=== PATIENT | female | born 1950 | race Caucasian/White ===

== ENCOUNTER 2018-09-03 07:17 | Outpatient (CLI) | payer OTHER, MEDICARE ==
[~2018-09-03 07:17] MED LIST: B CO1TAB4 PO; CALC-499 PO; CHOL2000 PO; MAGN400C PO; RED600TA PO; [UNRECOGNIZED DRUG - CODE] TP
[2018-09-03 07:53] LABS: COLOR,URINE YELLOW (Yellow); GLUCOSE, URINE NEGATIVE (Neg); KETONES,URINE NEGATIVE (Neg); LEUKOCYTE ESTERASE ,URINE LARGE (Neg); NITRITES, URINE NEGATIVE (Neg); OCCULT BLOOD,URINE SMALL (Neg); PROTEIN,URINE NEGATIVE (Neg); UROBILINOGEN,URINE 0.2 E.U/dL (0.2-1.0)
[2018-09-03 07:54] LABS: CLARITY,URINE CLOUDY (Clear); UA COLLECTION TYPE CLN CATCH MIDSTREAM
[2018-09-03 08:03] LABS: BACTERIA,URINE 1+ /HPF (Neg); SQUAMOUS EPITHELIAL CELL,UR MANY /LPF (FEW)
[2018-09-03 08:04] LABS: AMORPHOUS PHOSPHATES 1+; MUCUS STRANDS FEW /LPF (Neg)
[2018-09-03 08:15] LABS: ALANINE AMINOTRANSFERASE 32 U/L (12-78); ALBUMIN 3.9 G/DL (3.4-5.0); ALBUMIN/GLOBULIN RATIO 1.2 (1.1-1.5); ALKALINE PHOSPHATASE 83 IU/L (46-116); ANION GAP 6 (8-16); ASPARTATE AMINO TRANSFERASE 21 U/L (10-37); BILIRUBIN,TOTAL 0.5 MG/DL (0.1-1.0); BLOOD UREA NITROGEN 15 MG/DL (7-18); BUN/CREATININE RATIO 21.4 (6.6-38.0); CALCIUM 8.8 MG/DL (8.5-10.1); CHLORIDE 107 MMOL/L (99-107); CHOL/HDL RATIO 2.7 (0.00-4.99); CHOLESTEROL 232 MG/DL (0-200); GLUCOSE 91 MG/DL (70-104); HDL CHOLESTEROL 85 MG/DL (35-60); LDL CHOLESTEROL 128 MG/DL (50-100); POTASSIUM 3.6 MMOL/L (3.5-5.1); SODIUM 142 MMOL/L (135-145); TOTAL PROTEIN 7.2 G/DL (6.4-8.2); TRIGLYCERIDES 86 MG/DL (20-135); eGFR 83 ML/MIN
[2018-09-03 08:16] LABS: BASOPHILS # (AUTO) 0.1 X10'3 (0-0.2); BASOPHILS % (AUTO) 1.2 % (0-1); EOSINOPHILS # (AUTO) 0.4 X10'3 (0-0.9); EOSINOPHILS % (AUTO) 5.4 % (0-6); HEMATOCRIT 42.6 % (35.0-45.0); HEMOGLOBIN 14.5 g/dl (12.0-16.0); LYMPHOCYTES # (AUTO) 1.9 X10'3 (1.1-4.8); LYMPHOCYTES % (AUTO) 29.2 % (21-51); MEAN CORPUSCULAR HEMOGLOBIN 31.4 PG (27.0-31.0); MEAN CORPUSCULAR HGB CONC 34.2 g/dL (33.0-36.5); MEAN PLATELET VOLUME 8.9 FL (7.4-10.4); MONOCYTES # (AUTO) 0.4 X10'3 (0-0.9); MONOCYTES % (AUTO) 5.7 % (2-12); NEUTROPHILS # (AUTO) 3.9 X10'3 (1.8-7.7); NEUTROPHILS % (AUTO) 58.5 % (42-75); PLATELET COUNT 168 X10'3 (140-440); RED BLOOD COUNT 4.63 X10'6 (4.20-5.60); RED CELL DISTRIBUTION WIDTH 13.3 % (11.5-14.5); WHITE BLOOD COUNT 6.7 X10'3 (4.5-11.0)
== END 2018-09-03 23:59 | disposition home or self-care (01) ==
LOC: LAB 07:17
PROVIDERS: ATTEND Family Medicine
DX: Z00.00 Encounter for general adult medical examination without abnormal findings (principal)
CPT/HCPCS: 36415; 80053; 80061; 81001; 84439; 84443; 85025

== ENCOUNTER 2019-06-06 07:17 | Emergency (ER) | payer OTHER, MEDICARE ==
[~2019-06-06] VITALS: Ht 167.6 cm; Wt 73.9 kg
[2019-06-06 08:18] LABS: BASOPHILS % (AUTO) 0.4 % (0-1); EOSINOPHILS # (AUTO) 0.3 X10'3 (0-0.9); EOSINOPHILS % (AUTO) 2.2 % (0-6); HEMATOCRIT 42.1 % (35.0-45.0); HEMOGLOBIN 14.3 g/dl (12.0-16.0); LYMPHOCYTES # (AUTO) 1.5 X10'3 (1.1-4.8); LYMPHOCYTES % (AUTO) 13.5 % (21-51); MEAN CORPUSCULAR HEMOGLOBIN 30.5 PG (27.0-31.0); MEAN CORPUSCULAR HGB CONC 33.9 g/dL (33.0-36.5); MEAN CORPUSCULAR VOLUME 89.9 FL (78-98); MONOCYTES # (AUTO) 0.4 X10'3 (0-0.9); MONOCYTES % (AUTO) 3.6 % (2-12); NEUTROPHILS # (AUTO) 9.2 X10'3 (1.8-7.7); NEUTROPHILS % (AUTO) 80.3 % (42-75); PLATELET COUNT 182 X10'3 (140-440); RED BLOOD COUNT 4.68 X10'6 (4.20-5.60); RED CELL DISTRIBUTION WIDTH 12.9 % (11.5-14.5); WHITE BLOOD COUNT 11.5 X10'3 (4.5-11.0)
[2019-06-06 08:25] LABS: CLARITY,URINE SLIGHTLY CLOUDY (Clear); COLOR,URINE YELLOW (Yellow); GLUCOSE, URINE NEGATIVE (Neg); KETONES,URINE NEGATIVE (Neg); LEUKOCYTE ESTERASE ,URINE SMALL (Neg); NITRITES, URINE NEGATIVE (Neg); OCCULT BLOOD,URINE SMALL (Neg); PROTEIN,URINE NEGATIVE (Neg); UROBILINOGEN,URINE 0.2 E.U/dL (0.2-1.0)
[2019-06-06 08:27] LABS: UA COLLECTION TYPE CLN CATCH MIDSTREAM
[2019-06-06 08:32] LABS: BACTERIA,URINE 1+ /HPF (Neg); MUCUS STRANDS NONE SEEN /LPF (Neg); SQUAMOUS EPITHELIAL CELL,UR MODERATE /LPF (FEW); WBC CLUMPS,URINE FEW /HPF (NEGATIVE)
[2019-06-06 08:39] LABS: ALANINE AMINOTRANSFERASE 36 U/L (12-78); ALBUMIN 3.7 G/DL (3.4-5.0); ALBUMIN/GLOBULIN RATIO 1.1 (1.1-1.5); ALKALINE PHOSPHATASE 93 IU/L (46-116); ANION GAP 8 (8-16); ASPARTATE AMINO TRANSFERASE 32 U/L (10-37); BILIRUBIN,TOTAL 0.4 MG/DL (0.1-1.0); BLOOD UREA NITROGEN 13 MG/DL (7-18); BUN/CREATININE RATIO 19.7 (6.6-38.0); CALCIUM 9.4 MG/DL (8.5-10.1); CHLORIDE 108 MMOL/L (99-107); CREATININE 0.66 MG/DL (0.40-0.90); GLUCOSE 111 MG/DL (70-104); POTASSIUM 3.2 MMOL/L (3.5-5.1); SODIUM 145 MMOL/L (135-145); TOTAL CARBON DIOXIDE 29.3 MMOL/L (24-32); TOTAL PROTEIN 7.1 G/DL (6.4-8.2); eGFR 89 ML/MIN
[2019-06-06] MEDS ORDERED: diatrozoate meglu/diatrozoate sod (37% iodine) 120ML oral solution PO ONE (09:45)
[2019-06-06] MEDS ORDERED: diatr meglu/diatrizoate 30ml oral sol.-(3 dose) bottle PO ONE (09:55)
[2019-06-06] MEDS ORDERED: iohexol 300mg/ml 100ml inj. ONE (11:56)
[2019-06-06 13:45] VITALS: BP 132/94
== END 2019-06-06 13:42 | disposition home or self-care (01) ==
LOC: ER 07:18
DX: R10.9 Unspecified abdominal pain (principal); R14.0 Abdominal distension (gaseous); R11.10 Vomiting, unspecified; Z98.51 Tubal ligation status; Z98.890 Other specified postprocedural states; Z79.899 Other long term (current) drug therapy
CPT/HCPCS: 36415; 74176; 74177; 76700; 76857; 80053; 81001; 85025; 87088; 93005; 99285; Q9963; Q9967; 82378

== ENCOUNTER 2019-06-11 14:05 | Outpatient (CLI) | payer OTHER, MEDICARE | END 2019-06-11 23:59 | disposition home or self-care (01) | LOC: RAD 14:05 | PROVIDERS: ATTEND Family Medicine | DX: N83.8 Other noninflammatory disorders of ovary, fallopian tube and broad ligament (principal) | CPT/HCPCS: 76830; 76856 ==

== ENCOUNTER 2019-06-13 06:15 | Day surgery (SDC) | payer OTHER, MEDICARE ==
[2019-06-13] VITALS (9 sets, daily range): BP systolic 106–171; BP diastolic 44–95
[~2019-06-13] VITALS: Ht 167.6 cm; Wt 72.7 kg
[2019-06-13] MEDS ORDERED: MIDAZolam 5mg/5ml vial ONE (06:38)
[2019-06-13] MEDS ORDERED: fentaNYL/PF 50MCG/1 ML 2ML syringe ONE (06:38)
[2019-06-13] MEDS ORDERED: ondansetron/PF 4mg/2ml inj ONE (09:23)
[2019-06-13] MEDS ORDERED: gadobutrol 10mmol/10ml inj. IV ONE (16:05)
== END 2019-06-13 13:30 | disposition home or self-care (01) ==
LOC: GI LAB 06:15
PROVIDERS: ATTEND Internal Medicine Gastroenterology
DX: R10.9 Unspecified abdominal pain (principal); K57.30 Diverticulosis of large intestine without perforation or abscess without bleeding; K56.699 Other intestinal obstruction unspecified as to partial versus complete obstruction; K56.2 Volvulus; Z79.899 Other long term (current) drug therapy
CPT/HCPCS: 45378; 72197; 99152; 99153; A9585; J2250; J2405; J3010; J7040; 45337; A4620

== ENCOUNTER 2019-06-14 12:52 | Inpatient (IN) | payer OTHER, MEDICARE ==
[~2019-06-14] VITALS: Ht 167.6 cm; Wt 72.7 kg
[2019-06-14 13:00] VITALS: BP 186/95
[2019-06-14] MEDS ORDERED: LIDOcaine Viscous 15ml cup ONE (14:55)
[2019-06-14] MEDS ORDERED: MIDAZolam 5mg/5ml vial ONE (15:18)
[2019-06-14] MEDS ORDERED: fentaNYL/PF 50MCG/1 ML 2ML syringe ONE (15:18)
[2019-06-14 15:35] VITALS: BP 159/84
[2019-06-14 15:45] VITALS: BP 158/78
[2019-06-14 15:55] VITALS: BP 149/74
[2019-06-14] MEDS ORDERED: morphine 2 MG/ML inj. syringe IV PRN ×2 (16:40)
[2019-06-14] MEDS ORDERED: acetaminophen 325mg tablet PO PRN (16:40)
[2019-06-14] MEDS ORDERED: mag hydrox/Alum hydrox/simeth 30ml oral suspension PO PRN (16:40)
[2019-06-14] MEDS ORDERED: magnesium hydroxide 30ml (MOM) UD suspension PO PRN (16:40)
--- NOTE | 2019-06-14 17:45 | NUR ---
Patient in room [facility]. I have received report from [facility]ni [facility] and had the opportunity to ask questions and assume patient care.
--- NOTE | 2019-06-14 18:15 | NUR ---
Pt arrived to the floor via wheelchair. pt will be tucked in and make her comfortable until change of shift.
--- NOTE | 2019-06-14 18:20 | NUR ---
Patient in room [facility]. I have received report from Catherine DIAZ and had the opportunity to ask questions and assume patient care.
--- NOTE | 2019-06-14 18:24 | NUR ---
Problems reprioritized. Patient report given, questions answered & plan of care reviewed with Nicole Hale.
[2019-06-14] MEDS ORDERED: potassium Cl 20 mEq SR tablet PO PRN ×2 (18:30)
[2019-06-14] MEDS: normal saline 1000ml 1,000 ML IV SCH ×2 (18:30→23:31)
[2019-06-14] MEDS: K and/or MAG REPLACEMENT MC SCH ×2 (18:30→20:00)
[2019-06-14 19:00] VITALS: BP 169/74
[2019-06-14] MEDS: ondansetron/PF 4mg/2ml inj IV PRN (19:20)
[2019-06-14] MEDS: heparin, porcine 5000 units/ml vial SQ SCH (19:37)
[2019-06-14] MEDS: diatr meglu/diatrizoate 30ml oral sol.-(3 dose) bottle PO SCH (21:32)
[2019-06-14] MEDS: proCHLORperazine 10 MG/2 ml inj IV PRN (23:31)
[2019-06-15] VITALS: BP 152/81
[2019-06-15] MEDS: ondansetron/PF 4mg/2ml inj IV PRN ×2 (03:41→13:19)
[2019-06-15 05:20] LABS: BASOPHILS # (AUTO) 0.1 X10'3 (0-0.2); BASOPHILS % (AUTO) 0.6 % (0-1); EOSINOPHILS % (AUTO) 0.5 % (0-6); HEMATOCRIT 39.4 % (35.0-45.0); HEMOGLOBIN 13.4 g/dl (12.0-16.0); LYMPHOCYTES # (AUTO) 1.3 X10'3 (1.1-4.8); LYMPHOCYTES % (AUTO) 14.3 % (21-51); MEAN CORPUSCULAR HEMOGLOBIN 30.1 PG (27.0-31.0); MEAN CORPUSCULAR VOLUME 88.6 FL (78-98); MEAN PLATELET VOLUME 9.2 FL (7.4-10.4); MONOCYTES # (AUTO) 0.8 X10'3 (0-0.9); MONOCYTES % (AUTO) 8.5 % (2-12); NEUTROPHILS # (AUTO) 6.9 X10'3 (1.8-7.7); NEUTROPHILS % (AUTO) 76.1 % (42-75); PLATELET COUNT 176 X10'3 (140-440); RED BLOOD COUNT 4.45 X10'6 (4.20-5.60); RED CELL DISTRIBUTION WIDTH 13.1 % (11.5-14.5); WHITE BLOOD COUNT 9.1 X10'3 (4.5-11.0)
[2019-06-15 05:45] LABS: ALBUMIN 3.1 G/DL (3.4-5.0); ANION GAP 8 (8-16); BLOOD UREA NITROGEN 9 MG/DL (7-18); BUN/CREATININE RATIO 16.1 (6.6-38.0); CALCIUM 8.3 MG/DL (8.5-10.1); CHLORIDE 107 MMOL/L (99-107); CREATININE 0.56 MG/DL (0.40-0.90); GLUCOSE 95 MG/DL (70-104); MAGNESIUM 1.9 MG/DL (1.5-2.4); SODIUM 143 MMOL/L (135-145); eGFR > 90 ML/MIN
[2019-06-15 05:55] LABS: POTASSIUM 2.6 MMOL/L (3.5-5.1)
--- NOTE | 2019-06-15 05:55 | NUR ---
Called MD for critical K of 2.6. Patient has replacement orders.
[2019-06-15] MEDS: K and/or MAG REPLACEMENT MC SCH ×2 (06:02→20:00)
[2019-06-15] MEDS: potassium CL 10mEq/100ml bag 100 ML IV PRN (06:02)
--- NOTE | 2019-06-15 06:45 | NUR ---
Problems reprioritized. Patient report given, questions answered & plan of care reviewed with Kathy DIAZ.
[2019-06-15 07:00] VITALS: BP 154/80
[2019-06-15] MEDS: diatr meglu/diatrizoate 30ml oral sol.-(3 dose) bottle PO SCH (07:00)
[2019-06-15] MEDS ORDERED: iohexol 300mg/ml 100ml inj. ONE (07:24)
[2019-06-15] MEDS: heparin, porcine 5000 units/ml vial SQ SCH ×2 (08:00→20:00)
[2019-06-15] MEDS: Potassium Cl 40 MEQ in NS 500 ML IV SCH ×2 (08:40→15:04)
[2019-06-15] MEDS: proCHLORperazine 10 MG/2 ml inj IV PRN ×2 (08:45→19:37)
--- NOTE | 2019-06-15 10:28 | NUR ---
DC'd patients NG per MD orders. Patient tolerated well.
[2019-06-15 11:00] VITALS: BP 139/82
--- NOTE | 2019-06-15 12:20 | NUR ---
Paged Dr Alonzo due to patient would like to try something else for pain Morphine makes her nauseated.
[2019-06-15] MEDS: normal saline 1000ml 1,000 ML IV SCH ×2 (12:36→23:32)
[2019-06-15] MEDS ORDERED: HYDROmorphone inj. 0.5 MG/0.5 ML DISP.SYRIN IV PRN (13:40)
[2019-06-15] MEDS ORDERED: ringers solution, lacted 1,000 ML IV ONE (16:49)
--- NOTE | 2019-06-15 18:30 | NUR ---
Patient in room [facility]. I have received report from Kathy Hale and had the opportunity to ask questions and assume patient care.
--- NOTE | 2019-06-15 18:46 | NUR ---
Problems reprioritized. Patient report given, questions answered & plan of care reviewed with Nicole DIAZ.
[2019-06-15 19:00] VITALS: BP 145/79
[2019-06-16] VITALS (20 sets, daily range): BP systolic 116–178; BP diastolic 58–90
[2019-06-16 03:44] LABS: ALANINE AMINOTRANSFERASE 20 U/L (12-78); ALBUMIN 2.9 G/DL (3.4-5.0); ALKALINE PHOSPHATASE 63 IU/L (46-116); ANION GAP 10 (8-16); ASPARTATE AMINO TRANSFERASE 22 U/L (10-37); BILIRUBIN,TOTAL 0.6 MG/DL (0.1-1.0); CALCIUM 8.4 MG/DL (8.5-10.1); CHLORIDE 109 MMOL/L (99-107); CREATININE 0.54 MG/DL (0.40-0.90); GLUCOSE 73 MG/DL (70-104); MAGNESIUM 1.9 MG/DL (1.5-2.4); POTASSIUM 3.3 MMOL/L (3.5-5.1); SODIUM 144 MMOL/L (135-145); TOTAL CARBON DIOXIDE 25.4 MMOL/L (24-32); TOTAL PROTEIN 5.8 G/DL (6.4-8.2); eGFR > 90 ML/MIN
[2019-06-16 04:09] LABS: BLOOD UREA NITROGEN 9 MG/DL (7-18); BUN/CREATININE RATIO 16.7 (6.6-38.0)
[2019-06-16] MEDS: potassium CL 10mEq/100ml bag 100 ML IV PRN (04:18)
[2019-06-16] MEDS ORDERED: BUPIVAcaine/PF 2.5 mg/ml (0.25%) 30ml vial ONE (05:09)
[2019-06-16] MEDS ORDERED: ceFAZolin 1000mg inj ONE (05:09)
[2019-06-16 05:22] LABS: BASOPHILS # (AUTO) 0.1 X10'3 (0-0.2); BASOPHILS % (AUTO) 1.1 % (0-1); EOSINOPHILS # (AUTO) 0.2 X10'3 (0-0.9); EOSINOPHILS % (AUTO) 1.9 % (0-6); HEMATOCRIT 39.3 % (35.0-45.0); HEMOGLOBIN 13.4 g/dl (12.0-16.0); LYMPHOCYTES # (AUTO) 1.8 X10'3 (1.1-4.8); LYMPHOCYTES % (AUTO) 21.7 % (21-51); MEAN CORPUSCULAR HEMOGLOBIN 30.1 PG (27.0-31.0); MEAN CORPUSCULAR HGB CONC 34.1 g/dL (33.0-36.5); MEAN CORPUSCULAR VOLUME 88.4 FL (78-98); MEAN PLATELET VOLUME 8.9 FL (7.4-10.4); MONOCYTES # (AUTO) 0.7 X10'3 (0-0.9); MONOCYTES % (AUTO) 8.8 % (2-12); NEUTROPHILS # (AUTO) 5.5 X10'3 (1.8-7.7); NEUTROPHILS % (AUTO) 66.5 % (42-75); PLATELET COUNT 173 X10'3 (140-440); RED BLOOD COUNT 4.45 X10'6 (4.20-5.60); RED CELL DISTRIBUTION WIDTH 13.1 % (11.5-14.5); WHITE BLOOD COUNT 8.3 X10'3 (4.5-11.0)
[2019-06-16] MEDS ORDERED: ceFOXitin 2 GM ADDVANTGE BAG 50 ML IV ONE (05:24)
[2019-06-16] MEDS ORDERED: sevoflurane 250ml liquid IH ONE (06:10)
[2019-06-16] MEDS ORDERED: dexamethasone sod phosphate 10mg/ml inj ONE (06:10)
[2019-06-16] MEDS ORDERED: neostigmine methylsulfate 1 MG/ML 10ml vial ONE (06:10)
[2019-06-16] MEDS ORDERED: midazolam 2 mg/2 ml injection ONE (06:16)
[2019-06-16] MEDS ORDERED: fentaNYL /PF 50mcg/ml 5ml ampule ONE (06:16)
[2019-06-16] MEDS ORDERED: propofol inj 20 ML IV ONE (06:24)
[2019-06-16] MEDS ORDERED: LIDOcaine 2% (20mg/ml) 5ml vial ONE (06:24)
[2019-06-16] MEDS ORDERED: rocuronium 10mg/ml inj IV ONE ×3 (06:24→07:54)
[2019-06-16] MEDS ORDERED: ondansetron/PF 4mg/2ml inj ONE (06:25)
--- NOTE | 2019-06-16 06:40 | NUR ---
Problems reprioritized. Patient report given, questions answered & plan of care reviewed with Antonieta DIAZ. Patient is currently in preop unit awaiting surgery.
--- NOTE | 2019-06-16 06:40 | NUR ---
Patient in room [facility]. I have received report from Nicole DIAZ and had the opportunity to ask questions and assume patient care.
[2019-06-16] MEDS ORDERED: glycopyrrolate 0.2mg/ml inj ONE (07:27)
[2019-06-16] MEDS ORDERED: BUPIVACAINE liposomal/PF 13.3 MG/ML vial IM ONE (07:37)
[2019-06-16] MEDS ORDERED: BUPIVAcaine/PF 2.5mg/ml (0.25%) 10ml vial ONE (07:37)
[2019-06-16] MEDS: heparin, porcine 5000 units/ml vial SQ SCH ×2 (08:00→20:00)
[2019-06-16] MEDS: K and/or MAG REPLACEMENT MC SCH ×2 (08:00→20:00)
[2019-06-16] MEDS ORDERED: fentaNYL/PF 50MCG/1 ML 2ML syringe ONE ×2 (08:14→09:28)
[2019-06-16] MEDS: normal saline 1000ml 1,000 ML IV SCH ×2 (08:36→16:29)
--- NOTE | 2019-06-16 09:15 | NUR ---
Received from OR via BED , accompanied by Anesthesiologist DR HIGGINS and report given by Anesthesiolgist. PATIENT WAKING UP, DENIES PAIN, V/S WNL, NEUROVASCULAR CHECKS INTACT, 20G PIV LUE, SCD ON, COLOSTOMY WITH GOOD SEAL AND SMALL AMOUNT OF FECAL MATTER IN BAG WITH PINKISH RED STOMA. BANDAIDS TO LAP SITES CDI AND 1 ISLAND DRESSING CDI, F/C DRAINING CLEAR YUELLOW URINE
[2019-06-16] MEDS ORDERED: ringers solution, lacted 1,000 ML IV SCH (09:29)
[2019-06-16] MEDS ORDERED: HYDROmorphone inj. 0.5 MG/0.5 ML DISP.SYRIN IV PRN (09:30)
[2019-06-16] MEDS ORDERED: labetalol 20mg/4ml (5mg/ml) syringe IV PRN (09:30)
[2019-06-16] MEDS ORDERED: ondansetron/PF 4mg/2ml inj IV PRN ×2 (09:30→09:40)
[2019-06-16] MEDS ORDERED: hydrALAZINE 20mg/ml inj. IV PRN (09:30)
[2019-06-16] MEDS ORDERED: fentaNYL/PF 50MCG/1 ML 2ML syringe IV PRN ×2 (09:30)
[2019-06-16] MEDS ORDERED: naloxone 0.4 mg/ml inj IV PRN (09:40)
[2019-06-16] MEDS ORDERED: CADD PCA waste documentation MC PRN (09:40)
--- NOTE | 2019-06-16 09:46 | NUR ---
Received patient report from recovery room nurse Luis DIAZ. Awaiting arrival back to room 351.
[2019-06-16] MEDS: ondansetron/PF 4mg/2ml inj IV PRN ×2 (10:05→15:44)
[2019-06-16] MEDS: HYDROmorphone inj. 0.5 MG/0.5 ML DISP.SYRIN IV PRN ×2 (10:19→10:31)
[2019-06-16] MEDS: HYDROmorphone/NS 1 mg/ml CADD 50 ML IV SCH ×8 (10:42→23:00)
--- NOTE | 2019-06-16 10:45 | NUR ---
PATIENT ORIENTED X4 BUT SLEEPY, DENIES PAIN, V/S WNL, NEUROVASCULAR CHECKS INTACT, 20G PIV LUE, SCD ON, COLOSTOMY WITH GOOD SEAL AND SMALL AMOUNT OF FECAL MATTER IN BAG WAS EMPTIED AND RESEALED WITH 100CC DOCUMENTED OUTPUT WITH PINKISH RED STOMA. BANDAIDS TO LAP SITES CDI AND 1 ISLAND DRESSING CDI, F/C DRAINING CLEAR YUELLOW URINE. PATIENT TAKEN TO 351 WITH ALL BELONGINGS AND HOOKED UP TO MONITORS IN ROOM AND REPORT GIVEN TO RN WHO HAS TAKEN OVER PATIENT CARE. .
--- NOTE | 2019-06-16 11:15 | NUR ---
Patient back in room 351. VSS. Abdomen soft, lap sites CDI, ostomy intact.
[2019-06-16 13:11] LABS: CANCER ANTIGEN 125 79.5 U/mL (0.0-38.1); CARCINOEMBRYONIC ANTIGEN 0.9 ng/mL (0.0-4.7)
--- NOTE | 2019-06-16 13:57 | NUR ---
Dr. Elmore paged regarding med rec needing to be addressed.
[2019-06-16 14:07] LABS: HEMATOCRIT 41.3 % (35.0-45.0); HEMOGLOBIN 13.8 g/dl (12.0-16.0); MEAN CORPUSCULAR HEMOGLOBIN 29.8 PG (27.0-31.0); MEAN CORPUSCULAR HGB CONC 33.5 g/dL (33.0-36.5); MEAN CORPUSCULAR VOLUME 88.9 FL (78-98); MEAN PLATELET VOLUME 9.2 FL (7.4-10.4); PLATELET COUNT 193 X10'3 (140-440); RED BLOOD COUNT 4.65 X10'6 (4.20-5.60); RED CELL DISTRIBUTION WIDTH 13.1 % (11.5-14.5); WHITE BLOOD COUNT 18.4 X10'3 (4.5-11.0)
--- NOTE | 2019-06-16 18:59 | NUR ---
Problems reprioritized. Patient report given, questions answered & plan of care reviewed with Wendy DIAZ.
[2019-06-17] VITALS: BP 141/70
[2019-06-17] MEDS: HYDROmorphone/NS 1 mg/ml CADD 50 ML IV SCH ×12 (01:00→23:00)
[2019-06-17] MEDS: normal saline 1000ml 1,000 ML IV SCH ×2 (02:03→13:28)
[2019-06-17 04:00] VITALS: BP 129/63
--- NOTE | 2019-06-17 04:30 | NUR ---
Patient did well last night. Patient tolerated her clears diet well with no nausea or abd distention. Patient did pass gas in her ostomy bag and had 100ml of liquid brown stool in her ostomy. Patient has hypoactive BS. FC in place draining clear yellow urine in FC. Pain control with Dilaudid cadd pump. Patient encourage to use her IS. Will continue with care.
[2019-06-17 06:13] LABS: BASOPHILS % (AUTO) 0.2 % (0-1); EOSINOPHILS % (AUTO) 0.1 % (0-6); HEMATOCRIT 35.7 % (35.0-45.0); HEMOGLOBIN 12.3 g/dl (12.0-16.0); LYMPHOCYTES # (AUTO) 1.6 X10'3 (1.1-4.8); LYMPHOCYTES % (AUTO) 12.3 % (21-51); MEAN CORPUSCULAR HEMOGLOBIN 30.4 PG (27.0-31.0); MEAN CORPUSCULAR HGB CONC 34.4 g/dL (33.0-36.5); MEAN CORPUSCULAR VOLUME 88.5 FL (78-98); MEAN PLATELET VOLUME 9.5 FL (7.4-10.4); MONOCYTES # (AUTO) 1.3 X10'3 (0-0.9); NEUTROPHILS # (AUTO) 9.9 X10'3 (1.8-7.7); NEUTROPHILS % (AUTO) 77.4 % (42-75); PLATELET COUNT 176 X10'3 (140-440); RED BLOOD COUNT 4.04 X10'6 (4.20-5.60); RED CELL DISTRIBUTION WIDTH 13.1 % (11.5-14.5); WHITE BLOOD COUNT 12.7 X10'3 (4.5-11.0)
[2019-06-17 06:24] LABS: ALBUMIN 2.4 G/DL (3.4-5.0); ANION GAP 7 (8-16); BLOOD UREA NITROGEN 6 MG/DL (7-18); BUN/CREATININE RATIO 10.2 (6.6-38.0); CALCIUM 8.2 MG/DL (8.5-10.1); CHLORIDE 107 MMOL/L (99-107); CREATININE 0.59 MG/DL (0.40-0.90); GLUCOSE 129 MG/DL (70-104); MAGNESIUM 1.7 MG/DL (1.5-2.4); POTASSIUM 3.5 MMOL/L (3.5-5.1); SODIUM 140 MMOL/L (135-145); TOTAL CARBON DIOXIDE 26.1 MMOL/L (24-32); eGFR > 90 ML/MIN
--- NOTE | 2019-06-17 06:42 | NUR ---
Problems reprioritized. Patient report given, questions answered & plan of care reviewed with Cari DIAZ.
[2019-06-17 07:30] VITALS: BP 148/74
[2019-06-17] MEDS: heparin, porcine 5000 units/ml vial SQ SCH ×2 (07:38→20:00)
[2019-06-17] MEDS: K and/or MAG REPLACEMENT MC SCH ×2 (07:38→20:00)
[2019-06-17 08:00] VITALS: BP 148/74
--- NOTE | 2019-06-17 08:16 | NUR ---
PAGER ID: [phone] MESSAGE: [phone] - Charlette Munroe : refusing library monitor. can I DC order? shes been sinus rhythm, no cardiac history. thanks! maxi [phone] tele chamber aware.
[2019-06-17 11:08] VITALS: BP 133/72
--- NOTE | 2019-06-17 18:16 | NUR ---
Problems reprioritized. Patient report given, questions answered & plan of care reviewed with EMILY Nguyen.
[2019-06-17 20:00] VITALS: BP 134/71
--- NOTE | 2019-06-17 21:00 | NUR ---
Patient tolerating PO fluids. SL per order.
[2019-06-18] VITALS: BP 121/64
[2019-06-18] MEDS: HYDROmorphone/NS 1 mg/ml CADD 50 ML IV SCH ×4 (01:00→07:00)
--- NOTE | 2019-06-18 04:00 | NUR ---
Green catheter removed this morning @0400. Patient educated to inform nursing staff when she urinates. States understanding.
[2019-06-18 06:22] LABS: BASOPHILS # (AUTO) 0.1 X10'3 (0-0.2); BASOPHILS % (AUTO) 0.7 % (0-1); EOSINOPHILS # (AUTO) 0.2 X10'3 (0-0.9); EOSINOPHILS % (AUTO) 2.3 % (0-6); HEMATOCRIT 32.9 % (35.0-45.0); HEMOGLOBIN 11.4 g/dl (12.0-16.0); LYMPHOCYTES # (AUTO) 1.5 X10'3 (1.1-4.8); LYMPHOCYTES % (AUTO) 14.9 % (21-51); MEAN CORPUSCULAR HEMOGLOBIN 30.5 PG (27.0-31.0); MEAN CORPUSCULAR HGB CONC 34.7 g/dL (33.0-36.5); MEAN CORPUSCULAR VOLUME 87.8 FL (78-98); MEAN PLATELET VOLUME 9.3 FL (7.4-10.4); MONOCYTES # (AUTO) 0.9 X10'3 (0-0.9); MONOCYTES % (AUTO) 8.2 % (2-12); NEUTROPHILS # (AUTO) 7.7 X10'3 (1.8-7.7); NEUTROPHILS % (AUTO) 73.9 % (42-75); PLATELET COUNT 152 X10'3 (140-440); RED BLOOD COUNT 3.74 X10'6 (4.20-5.60); RED CELL DISTRIBUTION WIDTH 12.8 % (11.5-14.5); WHITE BLOOD COUNT 10.4 X10'3 (4.5-11.0)
[2019-06-18 06:24] LABS: ANION GAP 6 (8-16); BLOOD UREA NITROGEN 4 MG/DL (7-18); CALCIUM 8.4 MG/DL (8.5-10.1); CHLORIDE 106 MMOL/L (99-107); CREATININE 0.57 MG/DL (0.40-0.90); GLUCOSE 108 MG/DL (70-104); MAGNESIUM 1.8 MG/DL (1.5-2.4); SODIUM 141 MMOL/L (135-145); eGFR > 90 ML/MIN
[2019-06-18 06:25] LABS: ALBUMIN 2.3 G/DL (3.4-5.0)
--- NOTE | 2019-06-18 06:30 | NUR ---
Problems reprioritized. Patient report given, questions answered & plan of care reviewed with Kathy DIAZ.
[2019-06-18] MEDS ORDERED: potassium CL 10mEq/100ml bag 100 ML IV PRN ×2 (06:55)
[2019-06-18] MEDS ORDERED: potassium Cl 20 mEq SR tablet PO PRN (06:55)
[2019-06-18 07:00] VITALS: BP 139/66
[2019-06-18] MEDS: K and/or MAG REPLACEMENT MC SCH ×4 (08:00→20:00)
[2019-06-18] MEDS: heparin, porcine 5000 units/ml vial SQ SCH ×2 (08:00→20:00)
[2019-06-18] MEDS: HYDROcodone/acetaminophen 10/325mg tab PO PRN ×3 (08:26→20:05)
[2019-06-18 11:00] VITALS: BP 120/73
[2019-06-18] MEDS: potassium Cl 20 mEq SR tablet PO PRN ×3 (11:03→19:59)
--- NOTE | 2019-06-18 15:13 | NUR ---
Sharon with case management working on getting patient her colostomy supplies for possible discharge tomorrow.
--- NOTE | 2019-06-18 16:53 | NUR ---
Initial: Pt admit with SBO and stricture of sigmoid colon. Pt now s/p colon resection with colostomy placement. Patient's diet has been advanced today to full liquid from clear liquid. Pt seen at bedside by engineering intern and provided with written and verbal colostomy nutrition therapy education with list of fiber content in food and RD contact information. Pt currently endorsing a good appetite and denies food allergies or difficulty chewing/swallowing. LBM 06/17 documented with 350 mL stool output per I&O. No nutrition intervention warranted at this time. Will continue to follow. Recommendations: 1) Advance to low fiber diet as medically indicated given pt s/p colostomy placement 2) Monitor need for ONS with diet advancement 3) Bowel care PRN 4) Wt per rx Addendum: 06/18/19 at [address] Amended: Links added.
--- NOTE | 2019-06-18 18:47 | NUR ---
Problems reprioritized. Patient report given, questions answered & plan of care reviewed with Ligia Wills RN.
[2019-06-18 19:00] VITALS: BP 128/70
[2019-06-19] VITALS: BP 123/76
[2019-06-19 05:10] LABS: BASOPHILS # (AUTO) 0.1 X10'3 (0-0.2); BASOPHILS % (AUTO) 0.8 % (0-1); EOSINOPHILS # (AUTO) 0.7 X10'3 (0-0.9); EOSINOPHILS % (AUTO) 5.7 % (0-6); HEMATOCRIT 36.1 % (35.0-45.0); HEMOGLOBIN 12.2 g/dl (12.0-16.0); LYMPHOCYTES # (AUTO) 2.3 X10'3 (1.1-4.8); LYMPHOCYTES % (AUTO) 19.8 % (21-51); MEAN CORPUSCULAR HEMOGLOBIN 29.9 PG (27.0-31.0); MEAN CORPUSCULAR HGB CONC 33.7 g/dL (33.0-36.5); MEAN CORPUSCULAR VOLUME 88.7 FL (78-98); MEAN PLATELET VOLUME 9.1 FL (7.4-10.4); MONOCYTES # (AUTO) 0.9 X10'3 (0-0.9); MONOCYTES % (AUTO) 7.4 % (2-12); NEUTROPHILS # (AUTO) 7.8 X10'3 (1.8-7.7); NEUTROPHILS % (AUTO) 66.3 % (42-75); PLATELET COUNT 184 X10'3 (140-440); RED BLOOD COUNT 4.07 X10'6 (4.20-5.60); RED CELL DISTRIBUTION WIDTH 12.9 % (11.5-14.5); WHITE BLOOD COUNT 11.7 X10'3 (4.5-11.0)
[2019-06-19 05:21] LABS: ALBUMIN 2.6 G/DL (3.4-5.0); ANION GAP 7 (8-16); BLOOD UREA NITROGEN 4 MG/DL (7-18); BUN/CREATININE RATIO 6.7 (6.6-38.0); CALCIUM 9.4 MG/DL (8.5-10.1); CHLORIDE 107 MMOL/L (99-107); GLUCOSE 103 MG/DL (70-104); POTASSIUM 3.9 MMOL/L (3.5-5.1); SODIUM 141 MMOL/L (135-145); TOTAL CARBON DIOXIDE 26.9 MMOL/L (24-32); eGFR > 90 ML/MIN
--- NOTE | 2019-06-19 06:45 | NUR ---
Problems reprioritized. Patient report given, questions answered & plan of care reviewed with EMILY Hernandez.
--- NOTE | 2019-06-19 06:46 | NUR ---
Patient in room [facility]. I have received report from Linda Ugarte RN and had the opportunity to ask questions and assume patient care.
[2019-06-19] MEDS: HYDROcodone/acetaminophen 10/325mg tab PO PRN ×2 (07:33→14:01)
[2019-06-19 08:00] VITALS: BP 129/70
[2019-06-19] MEDS: heparin, porcine 5000 units/ml vial SQ SCH (08:00)
[2019-06-19] MEDS: K and/or MAG REPLACEMENT MC SCH ×2 (08:00)
[2019-06-19] MEDS ORDERED: OXYC-145 PO (12:23)
[2019-06-19] MEDS ORDERED: DOCU-148 PO (13:32)
[2019-06-19] MEDS ORDERED: HYDR-4383 PO (13:32)
--- NOTE | 2019-06-19 14:28 | NUR ---
All cares given to patient. supplies given for colostomy.DC instructions given to patient. Dc home via private car to home with family in stable condition.
== END 2019-06-19 14:05 | disposition home or self-care (01) | DRG 330 ==
LOC: GI LAB 12:52 → EEVIPCON 13:00 → UNDOADMIN 16:30 → SUR 3N 16:30 → EEVIPCON 16:36 → SUR 3N 16:36
PROVIDERS: ADMIT Family Medicine; ATTEND Surgery
PROC: 0DBU4ZX Excision of Omentum, Percutaneous Endoscopic Approach, Diagnostic (ICD-10-PCS; 2019-06-16)
PROC: 0DBN4ZZ Excision of Sigmoid Colon, Percutaneous Endoscopic Approach (ICD-10-PCS; principal; 2019-06-16 06:10)
DX: C18.7 Malignant neoplasm of sigmoid colon (principal); K56.699 Other intestinal obstruction unspecified as to partial versus complete obstruction; R18.8 Other ascites; E87.6 Hypokalemia; R91.1 Solitary pulmonary nodule
CPT/HCPCS: Z7506; Z7508; 36415; 71045; 74019; 74177; 80048; 80053; 82378; 83735; 84132; 85025; 85027; 85610; 86304; 86885; 86900; 86901; 87081; 88307; 88309; 88331; 88341; 88342; 93005; A4215; A4421; A4618; A7000; C1758; C9290; G0378; J0690; J0694; J0780; J1100; J1170; J1644; J2001; J2250; J2270; J2405; J2704; J2710; J3010; J3480; J3490; J7030; J7040; J7120; Q9963; Q9967

== ENCOUNTER 2019-07-10 08:09 | Emergency (ER) | payer OTHER, MEDICARE ==
[~2019-07-10] VITALS: Ht 167.6 cm; Wt 67.3 kg
[~2019-07-10 08:09] MED LIST changes: +DOCU-148 PO; +HYDR-4383 PO; +OXYC-145 PO
[2019-07-10 08:54] LABS: BASOPHILS # (AUTO) 0.1 X10'3 (0-0.2); BASOPHILS % (AUTO) 0.6 % (0-1); EOSINOPHILS # (AUTO) 0.1 X10'3 (0-0.9); EOSINOPHILS % (AUTO) 0.4 % (0-6); HEMATOCRIT 38.1 % (35.0-45.0); HEMOGLOBIN 12.9 g/dl (12.0-16.0); LYMPHOCYTES # (AUTO) 1.3 X10'3 (1.1-4.8); LYMPHOCYTES % (AUTO) 9.5 % (21-51); MEAN CORPUSCULAR HEMOGLOBIN 29.2 PG (27.0-31.0); MEAN CORPUSCULAR HGB CONC 33.9 g/dL (33.0-36.5); MEAN PLATELET VOLUME 8.5 FL (7.4-10.4); MONOCYTES # (AUTO) 0.8 X10'3 (0-0.9); MONOCYTES % (AUTO) 5.7 % (2-12); NEUTROPHILS # (AUTO) 11.2 X10'3 (1.8-7.7); NEUTROPHILS % (AUTO) 83.8 % (42-75); PLATELET COUNT 277 X10'3 (140-440); RED BLOOD COUNT 4.43 X10'6 (4.20-5.60); RED CELL DISTRIBUTION WIDTH 13.4 % (11.5-14.5); WHITE BLOOD COUNT 13.4 X10'3 (4.5-11.0)
[2019-07-10 09:15] LABS: ALANINE AMINOTRANSFERASE 19 U/L (12-78); ALBUMIN 3.2 G/DL (3.4-5.0); ALBUMIN/GLOBULIN RATIO 0.8 (1.1-1.5); ALKALINE PHOSPHATASE 93 IU/L (46-116); ANION GAP 7 (8-16); ASPARTATE AMINO TRANSFERASE 16 U/L (10-37); BILIRUBIN,TOTAL 0.5 MG/DL (0.1-1.0); BLOOD UREA NITROGEN 14 MG/DL (7-18); BUN/CREATININE RATIO 16.9 (6.6-38.0); CHLORIDE 103 MMOL/L (99-107); CREATININE 0.83 MG/DL (0.40-0.90); GLUCOSE 131 MG/DL (70-104); LIPASE 146 U/L (73-393); POTASSIUM 3.8 MMOL/L (3.5-5.1); SODIUM 139 MMOL/L (135-145); TOTAL CARBON DIOXIDE 28.8 MMOL/L (24-32); TOTAL PROTEIN 7.2 G/DL (6.4-8.2); eGFR 68 ML/MIN
[2019-07-10] MEDS ORDERED: proCHLORperazine 10 MG/2 ml inj IV ONE (09:30)
[2019-07-10] MEDS ORDERED: HYDROmorphone inj. 0.5 MG/0.5 ML DISP.SYRIN IV ONE (09:30)
[2019-07-10] MEDS ORDERED: normal saline 1000ML IV soln IVB ONE (09:30)
[2019-07-10 09:44] LABS: CLARITY,URINE SLIGHTLY CLOUDY (Clear); COLOR,URINE YELLOW (Yellow); GLUCOSE, URINE NEGATIVE (Neg); KETONES,URINE NEGATIVE (Neg); LEUKOCYTE ESTERASE ,URINE NEGATIVE (Neg); NITRITES, URINE NEGATIVE (Neg); OCCULT BLOOD,URINE MODERATE (Neg); PH,URINE 6.5 (4.8-8.0); PROTEIN,URINE NEGATIVE (Neg); UA COLLECTION TYPE CLN CATCH MIDSTREAM; UROBILINOGEN,URINE 0.2 E.U/dL (0.2-1.0)
[2019-07-10 09:57] LABS: MUCUS STRANDS MODERATE /LPF (Neg); SQUAMOUS EPITHELIAL CELL,UR MODERATE /LPF (FEW)
[2019-07-10 10:04] LABS: AMORPHOUS URATES 1+; BACTERIA,URINE NONE SEEN /HPF (Neg); WBC,URINE 0-4 /HPF (0-4)
[2019-07-10 10:05] LABS: TRANSITIONAL EPI CELLS,URINE FEW /HPF
[2019-07-10] MEDS ORDERED: PROC-8 PO (11:15)
[2019-07-10 11:19] VITALS: BP 133/76
== END 2019-07-10 11:29 | disposition home or self-care (01) ==
LOC: ER 08:10
DX: K56.7 Ileus, unspecified (principal); R11.10 Vomiting, unspecified; Z85.43 Personal history of malignant neoplasm of ovary; Z98.51 Tubal ligation status; Z98.890 Other specified postprocedural states; Z88.5 Allergy status to narcotic agent; Z79.899 Other long term (current) drug therapy
CPT/HCPCS: 36415; 74022; 80053; 81001; 83690; 85025; 96374; 96375; 99284; J0780; J1170; J7030

== ENCOUNTER 2019-07-17 13:11 | Outpatient (CLI) | payer OTHER, MEDICARE ==
[~2019-07-17 13:11] MED LIST changes: +PROC-8 PO
[2019-07-17 13:33] LABS: BASOPHILS # (AUTO) 0.1 X10'3 (0-0.2); EOSINOPHILS # (AUTO) 0.3 X10'3 (0-0.9); EOSINOPHILS % (AUTO) 3.8 % (0-6); HEMATOCRIT 36.8 % (35.0-45.0); LYMPHOCYTES # (AUTO) 1.6 X10'3 (1.1-4.8); LYMPHOCYTES % (AUTO) 18.6 % (21-51); MEAN CORPUSCULAR HEMOGLOBIN 28.8 PG (27.0-31.0); MEAN CORPUSCULAR HGB CONC 32.7 g/dL (33.0-36.5); MEAN CORPUSCULAR VOLUME 87.9 FL (78-98); MONOCYTES # (AUTO) 0.7 X10'3 (0-0.9); MONOCYTES % (AUTO) 8.2 % (2-12); NEUTROPHILS % (AUTO) 68.4 % (42-75); PLATELET COUNT 255 X10'3 (140-440); RED BLOOD COUNT 4.18 X10'6 (4.20-5.60); RED CELL DISTRIBUTION WIDTH 13.7 % (11.5-14.5); WHITE BLOOD COUNT 8.8 X10'3 (4.5-11.0)
[2019-07-17 13:48] LABS: ALANINE AMINOTRANSFERASE 16 U/L (12-78); ALBUMIN/GLOBULIN RATIO 0.8 (1.1-1.5); ALKALINE PHOSPHATASE 85 IU/L (46-116); ANION GAP 5 (8-16); ASPARTATE AMINO TRANSFERASE 20 U/L (10-37); BILIRUBIN,TOTAL 0.2 MG/DL (0.1-1.0); BLOOD UREA NITROGEN 15 MG/DL (7-18); BUN/CREATININE RATIO 18.1 (6.6-38.0); CALCIUM 9.6 MG/DL (8.5-10.1); CHLORIDE 105 MMOL/L (99-107); CREATININE 0.83 MG/DL (0.40-0.90); GLUCOSE 83 MG/DL (70-104); SODIUM 141 MMOL/L (135-145); TOTAL CARBON DIOXIDE 30.8 MMOL/L (24-32); TOTAL PROTEIN 6.6 G/DL (6.4-8.2); eGFR 68 ML/MIN
== END 2019-07-17 23:59 | disposition home or self-care (01) ==
LOC: LAB SPEC 13:11
PROVIDERS: ATTEND Internal Medicine
DX: C56.9 Malignant neoplasm of unspecified ovary (principal)
CPT/HCPCS: 36415; 80053; 85025; 86304; 86706; 87340

== ENCOUNTER 2019-07-26 06:45 | Day surgery (SDC) | payer OTHER, MEDICARE ==
[~2019-07-26] VITALS: Ht 167.6 cm; Wt 69.3 kg
[2019-07-26] MEDS ORDERED: normal saline 1000ml 1,000 ML IV PRN (07:10)
[2019-07-26 07:16] VITALS: BP 114/71
[2019-07-26] MEDS ORDERED: DOCU-148 PO (07:36)
[2019-07-26] MEDS ORDERED: simethicone PO (07:36)
[2019-07-26] MEDS ORDERED: MULT-1085 PO (07:36)
[2019-07-26] MEDS ORDERED: ONDA8TAB6 PO (07:36)
[2019-07-26] MEDS ORDERED: OMEP20TA23 PO (07:37)
[2019-07-26] MEDS ORDERED: PROC-8 PO (07:41)
[2019-07-26 08:10] LABS: BASOPHILS # (AUTO) 0.1 X10'3 (0-0.2); BASOPHILS % (AUTO) 0.8 % (0-1); EOSINOPHILS # (AUTO) 0.1 X10'3 (0-0.9); EOSINOPHILS % (AUTO) 1.3 % (0-6); LYMPHOCYTES # (AUTO) 1.3 X10'3 (1.1-4.8); LYMPHOCYTES % (AUTO) 14.5 % (21-51); MEAN CORPUSCULAR HEMOGLOBIN 28.7 PG (27.0-31.0); MEAN CORPUSCULAR HGB CONC 33.2 g/dL (33.0-36.5); MEAN CORPUSCULAR VOLUME 86.4 FL (78-98); MEAN PLATELET VOLUME 9.4 FL (7.4-10.4); MONOCYTES # (AUTO) 0.7 X10'3 (0-0.9); MONOCYTES % (AUTO) 7.4 % (2-12); NEUTROPHILS # (AUTO) 6.9 X10'3 (1.8-7.7); PLATELET COUNT 274 X10'3 (140-440); RED BLOOD COUNT 3.82 X10'6 (4.20-5.60); RED CELL DISTRIBUTION WIDTH 13.6 % (11.5-14.5); WHITE BLOOD COUNT 9.1 X10'3 (4.5-11.0)
[2019-07-26] MEDS ORDERED: midazolam 2 mg/2 ml injection ONE (08:23)
[2019-07-26] MEDS ORDERED: fentaNYL/PF 50MCG/1 ML 2ML syringe ONE ×2 (08:23→08:57)
[2019-07-26] MEDS ORDERED: heparin sodium, porcine/PF 100unit/ml 5ML syringe ONE (08:23)
[2019-07-26] MEDS ORDERED: LIDOcaine 1%/PF 5ML 10 MG/ML VIAL ONE (08:23)
[2019-07-26 09:30] VITALS: BP 119/67
[2019-07-26 09:45] VITALS: BP 122/66
[2019-07-26 10:00] VITALS: BP 121/64
[2019-07-26 10:15] VITALS: BP 122/65
[2019-07-26 10:45] VITALS: BP 125/68
== END 2019-07-26 11:15 | disposition home or self-care (01) ==
LOC: SSTAY O 06:45 → MED 3N 06:50 → EEVIPCON 08:30 → SSTAY O 11:15
PROVIDERS: ATTEND Radiology Diagnostic Radiology
DX: C56.9 Malignant neoplasm of unspecified ovary (principal); Z96.651 Presence of right artificial knee joint; Z98.890 Other specified postprocedural states; Z93.3 Colostomy status; Z90.49 Acquired absence of other specified parts of digestive tract; Z98.51 Tubal ligation status; Z88.5 Allergy status to narcotic agent
CPT/HCPCS: 36415; 36561; 76937; 77001; 85025; 99152; 99153; C1769; C1788; C1894; J1642; J2250; J3010; J7030

== ENCOUNTER 2019-08-30 07:30 | Day surgery (SDC) | payer OTHER, MEDICARE ==
[~2019-08-30] VITALS: Ht 167.6 cm; Wt 69.9 kg
[~2019-08-30 07:30] MED LIST changes: -B CO1TAB4 PO; -CALC-499 PO; -CHOL2000 PO; -MAGN400C PO; +MULT-1085 PO; +OMEP20TA23 PO; +ONDA8TAB6 PO; -OXYC-145 PO; -[UNRECOGNIZED DRUG - CODE] TP; +simethicone PO
[2019-08-30] MEDS ORDERED: DOCE20VI IV (08:25)
[2019-08-30] MEDS ORDERED: HYDR-4353 PO (08:25)
[2019-08-30 08:27] VITALS: BP 120/67
[2019-08-30 08:30] VITALS: BP 109/49
[2019-08-30 08:45] VITALS: BP 111/63
[2019-08-30 09:00] VITALS: BP 110/68
[2019-08-30 09:15] VITALS: BP 111/64
== END 2019-08-30 09:35 | disposition home or self-care (01) ==
LOC: SSTAY O 07:30
PROVIDERS: ATTEND Radiology Vascular & Interventional Radiology
DX: R18.8 Other ascites (principal); C48.2 Malignant neoplasm of peritoneum, unspecified; Z85.43 Personal history of malignant neoplasm of ovary; Z88.5 Allergy status to narcotic agent
CPT/HCPCS: 49083; C1729

== ENCOUNTER 2019-09-09 09:41 | Outpatient (CLI) | payer OTHER, MEDICARE ==
[~2019-09-09 09:41] MED LIST changes: +DOCE20VI IV; -DOCU-148 PO; +HYDR-4353 PO; -HYDR-4383 PO; -ONDA8TAB6 PO; -RED600TA PO; +iohexol 300mg/ml 100ml inj. ONE; -simethicone PO
== END 2019-09-09 23:59 | disposition home or self-care (01) ==
LOC: 64 CT 09:41
PROVIDERS: ATTEND Obstetrics & Gynecology Gynecologic Oncology
DX: C56.9 Malignant neoplasm of unspecified ovary (principal)
CPT/HCPCS: 74177; Q9967

== ENCOUNTER 2019-11-08 10:03 | Outpatient (CLI) | payer MEDICARE, OTHER ==
[~2019-11-08 10:03] MED LIST changes: -iohexol 300mg/ml 100ml inj. ONE
== END 2019-11-08 23:59 | disposition home or self-care (01) ==
LOC: RAD 10:03
PROVIDERS: ATTEND Internal Medicine
DX: C56.9 Malignant neoplasm of unspecified ovary (principal)
CPT/HCPCS: 76700

== ENCOUNTER 2019-12-21 08:30 | Outpatient (CLI) | payer MEDICARE, OTHER ==
[2019-12-21] MEDS ORDERED: iohexol 300mg/ml 100ml inj. ONE (09:20)
== END 2019-12-21 23:59 | disposition home or self-care (01) ==
LOC: 64 CT 08:30
PROVIDERS: ATTEND Internal Medicine
DX: C56.9 Malignant neoplasm of unspecified ovary (principal); M47.816 Spondylosis without myelopathy or radiculopathy, lumbar region; M16.10 Unilateral primary osteoarthritis, unspecified hip; I25.10 Atherosclerotic heart disease of native coronary artery without angina pectoris; I70.8 Atherosclerosis of other arteries
CPT/HCPCS: 71260; 74177; Q9967

== ENCOUNTER 2020-02-03 09:32 | Outpatient (CLI) | payer MEDICARE, OTHER ==
[2020-02-03 10:20] LABS: BASOPHILS # (AUTO) 0.1 X10'3 (0-0.2); EOSINOPHILS # (AUTO) 0.4 X10'3 (0-0.9); EOSINOPHILS % (AUTO) 7.4 % (0-6); HEMATOCRIT 37.2 % (35.0-45.0); HEMOGLOBIN 12.6 g/dl (12.0-16.0); LYMPHOCYTES # (AUTO) 1.7 X10'3 (1.1-4.8); MEAN CORPUSCULAR HEMOGLOBIN 34.9 PG (27.0-31.0); MEAN CORPUSCULAR HGB CONC 33.9 g/dL (33.0-36.5); MEAN CORPUSCULAR VOLUME 103.1 FL (78-98); MEAN PLATELET VOLUME 8.3 FL (7.4-10.4); MONOCYTES # (AUTO) 0.3 X10'3 (0-0.9); MONOCYTES % (AUTO) 5.7 % (2-12); NEUTROPHILS # (AUTO) 2.6 X10'3 (1.8-7.7); NEUTROPHILS % (AUTO) 51.9 % (42-75); PLATELET COUNT 100 X10'3 (140-440); RED BLOOD COUNT 3.61 X10'6 (4.20-5.60); WHITE BLOOD COUNT 5.1 X10'3 (4.5-11.0)
[2020-02-03 10:37] LABS: ALANINE AMINOTRANSFERASE 31 U/L (12-78); ALBUMIN 3.6 G/DL (3.4-5.0); ALBUMIN/GLOBULIN RATIO 0.9 (1.1-1.5); ALKALINE PHOSPHATASE 80 IU/L (46-116); ANION GAP 5 (8-16); ASPARTATE AMINO TRANSFERASE 24 U/L (10-37); BILIRUBIN,TOTAL 0.4 MG/DL (0.1-1.0); BLOOD UREA NITROGEN 19 MG/DL (7-18); BUN/CREATININE RATIO 25.7 (6.6-38.0); CHLORIDE 106 MMOL/L (99-107); CREATININE 0.74 MG/DL (0.40-0.90); GLUCOSE 95 MG/DL (70-104); POTASSIUM 3.8 MMOL/L (3.5-5.1); SODIUM 142 MMOL/L (135-145); TOTAL CARBON DIOXIDE 30.7 MMOL/L (24-32); TOTAL PROTEIN 7.4 G/DL (6.4-8.2); eGFR 78 ML/MIN
== END 2020-02-03 23:59 | disposition home or self-care (01) ==
LOC: RAD 09:32
PROVIDERS: ATTEND Obstetrics & Gynecology Gynecologic Oncology
DX: C56.9 Malignant neoplasm of unspecified ovary (principal); M47.819 Spondylosis without myelopathy or radiculopathy, site unspecified; J84.10 Pulmonary fibrosis, unspecified
CPT/HCPCS: 36415; 71046; 80053; 85025; 86304; 93005

== ENCOUNTER 2020-03-15 14:24 | Outpatient (CLI) | payer MEDICARE, OTHER ==
[2020-03-15 17:14] LABS: ALANINE AMINOTRANSFERASE 26 U/L (12-78); ALBUMIN 2.6 G/DL (3.4-5.0); ALBUMIN/GLOBULIN RATIO 0.7 (1.1-1.5); ALKALINE PHOSPHATASE 106 IU/L (46-116); ANION GAP 9 (8-16); ASPARTATE AMINO TRANSFERASE 22 U/L (10-37); BILIRUBIN,TOTAL 0.3 MG/DL (0.1-1.0); BLOOD UREA NITROGEN 12 MG/DL (7-18); BUN/CREATININE RATIO 15.4 (6.6-38.0); CALCIUM 9.3 MG/DL (8.5-10.1); CHLORIDE 103 MMOL/L (99-107); CREATININE 0.78 MG/DL (0.40-0.90); GLUCOSE 98 MG/DL (70-104); POTASSIUM 3.6 MMOL/L (3.5-5.1); SODIUM 141 MMOL/L (135-145); TOTAL CARBON DIOXIDE 28.6 MMOL/L (24-32); TOTAL PROTEIN 6.6 G/DL (6.4-8.2); eGFR 73 ML/MIN
[2020-03-15 17:15] LABS: BASOPHILS # (AUTO) 0.1 X10'3 (0-0.2); BASOPHILS % (AUTO) 1.3 % (0-1); EOSINOPHILS # (AUTO) 0.3 X10'3 (0-0.9); EOSINOPHILS % (AUTO) 4.4 % (0-6); HEMATOCRIT 29.7 % (35.0-45.0); LYMPHOCYTES # (AUTO) 1.5 X10'3 (1.1-4.8); LYMPHOCYTES % (AUTO) 20.6 % (21-51); MEAN CORPUSCULAR HEMOGLOBIN 32.4 PG (27.0-31.0); MEAN CORPUSCULAR HGB CONC 33.6 g/dL (33.0-36.5); MEAN CORPUSCULAR VOLUME 96.3 FL (78-98); MEAN PLATELET VOLUME 8.4 FL (7.4-10.4); MONOCYTES # (AUTO) 0.8 X10'3 (0-0.9); MONOCYTES % (AUTO) 10.3 % (2-12); NEUTROPHILS # (AUTO) 4.6 X10'3 (1.8-7.7); NEUTROPHILS % (AUTO) 63.4 % (42-75); PLATELET COUNT 308 X10'3 (140-440); RED BLOOD COUNT 3.09 X10'6 (4.20-5.60); RED CELL DISTRIBUTION WIDTH 13.3 % (11.5-14.5); WHITE BLOOD COUNT 7.3 X10'3 (4.5-11.0)
== END 2020-03-15 23:59 | disposition home or self-care (01) ==
LOC: LAB 14:24
PROVIDERS: ATTEND Internal Medicine
DX: C56.9 Malignant neoplasm of unspecified ovary (principal)
CPT/HCPCS: 36415; 80053; 85025; 86304

== ENCOUNTER → 2020-04-19 | Outpatient (CLI) | payer MEDICARE, OTHER ==
[~2020-04-19] MED LIST changes: +iohexol 300mg/ml 100ml inj. ONE
== END | disposition home or self-care (01) ==
LOC: 64 CT 08:10
PROVIDERS: ATTEND Internal Medicine
DX: C56.9 Malignant neoplasm of unspecified ovary (principal); R91.1 Solitary pulmonary nodule; R18.8 Other ascites
CPT/HCPCS: 71260; 74177; Q9967

== ENCOUNTER 2020-06-09 12:51 | Outpatient (CLI) | payer MEDICARE, OTHER | END 2020-06-09 23:59 | disposition home or self-care (01) | LOC: 64 CT 12:51 | PROVIDERS: ATTEND Internal Medicine | DX: C56.9 Malignant neoplasm of unspecified ovary (principal); J98.4 Other disorders of lung; M43.16 Spondylolisthesis, lumbar region; R18.8 Other ascites; M25.78 Osteophyte, vertebrae | CPT/HCPCS: 71260; 74177; Q9967 ==

== ENCOUNTER 2020-06-12 11:55 | Emergency (ER) | payer MEDICARE, OTHER ==
[~2020-06-12] VITALS: Ht 167.6 cm; Wt 51.0 kg
[~2020-06-12 11:55] MED LIST changes: -iohexol 300mg/ml 100ml inj. ONE
[2020-06-12 13:45] LABS: BASOPHILS % (AUTO) 0.2 % (0-1); EOSINOPHILS % (AUTO) 0 % (0-6); HEMATOCRIT 37.7 % (35.0-45.0); HEMOGLOBIN 12.4 g/dl (12.0-16.0); LYMPHOCYTES # (AUTO) 0.7 X10'3 (1.1-4.8); MEAN CORPUSCULAR HGB CONC 32.9 g/dL (33.0-36.5); MEAN CORPUSCULAR VOLUME 88.1 FL (78-98); MEAN PLATELET VOLUME 7.5 FL (7.4-10.4); MONOCYTES % (AUTO) 6.2 % (2-12); NEUTROPHILS % (AUTO) 89.6 % (42-75); PLATELET COUNT 201 X10'3 (140-440); RED BLOOD COUNT 4.28 X10'6 (4.20-5.60); WHITE BLOOD COUNT 16.7 X10'3 (4.5-11.0)
[2020-06-12 14:00] LABS: ALANINE AMINOTRANSFERASE 31 U/L (12-78); ALBUMIN 2.7 G/DL (3.4-5.0); ALBUMIN/GLOBULIN RATIO 0.6 (1.1-1.5); ALKALINE PHOSPHATASE 123 IU/L (46-116); ANION GAP 12 (8-16); ASPARTATE AMINO TRANSFERASE 30 U/L (10-37); BILIRUBIN,TOTAL 0.5 MG/DL (0.1-1.0); BLOOD UREA NITROGEN 18 MG/DL (7-18); BUN/CREATININE RATIO 16.4 (6.6-38.0); CALCIUM 10.4 MG/DL (8.5-10.1); CHLORIDE 99 MMOL/L (99-107); GLUCOSE 109 MG/DL (70-104); LIPASE < 50 U/L (73-393); POTASSIUM 3.9 MMOL/L (3.5-5.1); SODIUM 135 MMOL/L (135-145); TOTAL CARBON DIOXIDE 24.1 MMOL/L (24-32); TOTAL PROTEIN 7.6 G/DL (6.4-8.2); eGFR 49 ML/MIN
[2020-06-12] MEDS ORDERED: proCHLORperazine 10mg tablet PO ONE (14:30)
[2020-06-12 14:44] LABS: PLATELET ESTIMATE NORMAL; TOTAL CELLS COUNTED 100
[2020-06-12 15:03] LABS: CLARITY,URINE SLIGHTLY CLOUDY (Clear); COLOR,URINE YELLOW (Yellow); GLUCOSE, URINE NEGATIVE (Neg); KETONES,URINE NEGATIVE (Neg); LEUKOCYTE ESTERASE ,URINE TRACE (Neg); NITRITES, URINE NEGATIVE (Neg); OCCULT BLOOD,URINE SMALL (Neg); PH,URINE 5.5 (4.8-8.0); PROTEIN,URINE 30 mg/dl (Neg); UROBILINOGEN,URINE 0.2 E.U/dL (0.2-1.0)
[2020-06-12 15:08] LABS: UA COLLECTION TYPE CLN CATCH MIDSTREAM
[2020-06-12] MEDS ORDERED: normal saline 1000ML IV soln IVB ONE (15:10)
[2020-06-12 15:11] LABS: BACTERIA,URINE 4+ /HPF (Neg); MUCUS STRANDS FEW /LPF (Neg); SQUAMOUS EPITHELIAL CELL,UR MANY /LPF (FEW); WBC,URINE 20-30 /HPF (0-4)
--- NOTE | 2020-06-12 15:42 | NUR ---
patient refused iv dr payan aware, ok to orally hydrate
[2020-06-12 15:46] VITALS: BP 105/68
== END 2020-06-12 15:51 | disposition home or self-care (01) ==
LOC: ER 11:56
DX: R10.84 Generalized abdominal pain (principal); R19.7 Diarrhea, unspecified; E86.0 Dehydration; R11.10 Vomiting, unspecified; Z85.43 Personal history of malignant neoplasm of ovary; Z90.710 Acquired absence of both cervix and uterus; Z98.51 Tubal ligation status; Z98.890 Other specified postprocedural states; Z72.89 Other problems related to lifestyle; Z88.5 Allergy status to narcotic agent; Z79.899 Other long term (current) drug therapy
CPT/HCPCS: 36415; 76700; 80053; 81001; 83690; 85007; 85025; 99284; Q0164

== ENCOUNTER 2020-06-16 10:17 | Day surgery (SDC) | payer MEDICARE, OTHER ==
[~2020-06-16] VITALS: Ht 167.6 cm; Wt 64.5 kg
[2020-06-16] MEDS ORDERED: albumin 25% 100mL bottle x 1 IV PRN (10:55)
--- NOTE | 2020-06-16 11:20 | NUR ---
DENYS GUILLEN HERE FOR PARACENTESIS, ULTRA SOUND ABD, INSUFFICIENT FLUID TO PERFORM PROCEDURE. PT D/C TO HOME BY AMBULATION.
[2020-06-16] MEDS ORDERED: AVA100I INJ (11:25)
== END 2020-06-16 11:20 | disposition home or self-care (01) ==
LOC: SSTAY O 10:17
PROVIDERS: ATTEND Radiology Diagnostic Radiology
DX: R18.8 Other ascites (principal); Z53.8 Procedure and treatment not carried out for other reasons; Z85.43 Personal history of malignant neoplasm of ovary; Z90.710 Acquired absence of both cervix and uterus; Z98.51 Tubal ligation status; Z98.890 Other specified postprocedural states; Z72.89 Other problems related to lifestyle; Z88.5 Allergy status to narcotic agent; Z79.899 Other long term (current) drug therapy
CPT/HCPCS: 76705